=== PATIENT | male | born 1935 | race African-American/Black ===

== ENCOUNTER 2018-01-12 06:05 | Emergency (ER) | payer MEDICARE ==
[2018-01-12] MEDS ORDERED: ASPIRIN PO ONE (06:28)
--- NOTE | 2018-01-12 07:09 | Emergency Department Report ---
ED General Adult HPI - General Chief complaint: Dizziness Stated complaint: DIZZINESS Time Seen by Provider: 01/12/18 06:45 Source: EMS Mode of arrival: Stretcher Limitations: Language Barrier (Grenadian language line systems applications programming lead used however patient has confusion at baseline poor historian) - History of Present Illness Initial comments: 82-year-old male with history of CVA, dementia and atrial fibrillation presents with dizziness and pain all over. Patient is non-Iranian speaking. He is Grenadian. I attempted to use language line systems applications programming lead. Due to patient's dementia, unable to obtain history. He perseverates over whether his daughter has arrived and diagnosis of hypertension. He was unable to answer questions regarding pain and weakness/paresthesias. Nursing staff and I notice left facial droop. Fortunately it was well documented in EMR that patient had CVA with left-sided residual deficits. Majority of hx obtained from EMR - Related Data Home Medications Medication Instructions Recorded Confirmed Last Taken Brimonidine/Timolol 0.2-0.5% 1 drop OU BID 03/21/15 03/21/15 03/21/15 [Combigan 0.2-0.5%] Gabapentin [Neurontin] 300 mg PO BID 03/21/15 03/21/15 03/21/15 Lumigan 0.01% 1 drop HS 03/21/15 03/21/15 03/21/15 amLODIPine [Norvasc] 10 mg PO DAILY 03/21/15 03/21/15 Unknown Previous Rx's Medication Instructions Recorded Last Taken Type Butalb/Acetamin/Caff 50-325-40 2 tab PO Q6H PRN #20 tablet 03/23/15 Unknown Rx [Fioricet] Lisinopril [Zestril TAB] 5 mg PO QDAY #30 tablet 03/23/15 Unknown Rx Pantoprazole Sodium [Protonix] 40 mg PO DAILY #30 tablet. 03/23/15 Unknown Rx Allergies Allergy/AdvReac Type Severity Reaction Status Date / Time No Known Allergies Allergy Unverified 02/16/14 08:33 ED Review of Systems ROS: Stated complaint: DIZZINESS Other details as noted in HPI Comment: Unobtainable due to pts medical conditions (dementia) ED Past Medical Hx - Past Medical History Hx Hypertension: Yes Hx CVA: Yes Hx Diabetes: Yes Additional medical history: (language barrier, awaiting family for further hx) - Surgical History Additional Surgical History: delmer - Social History Smoking Status: Never Smoker Substance Use Type: None - Medications Home Medications: Home Medications Medication Instructions Recorded Confirmed Last Taken Type Brimonidine/Timolol 0.2-0.5% 1 drop OU BID 03/21/15 03/21/15 03/21/15 History [Combigan 0.2-0.5%] Gabapentin [Neurontin] 300 mg PO BID 03/21/15 03/21/15 03/21/15 History Lumigan 0.01% 1 drop HS 03/21/15 03/21/15 03/21/15 History amLODIPine [Norvasc] 10 mg PO DAILY 03/21/15 03/21/15 Unknown History Butalb/Acetamin/Caff 50-325-40 2 tab PO Q6H PRN #20 tablet 03/23/15 Unknown Rx [Fioricet] Lisinopril [Zestril TAB] 5 mg PO QDAY #30 tablet 03/23/15 Unknown Rx Pantoprazole Sodium [Protonix] 40 mg PO DAILY #30 tablet. 03/23/15 Unknown Rx ED Physical Exam - General Limitations: Language Barrier (Grenadian language line systems applications programming lead used, however patient is poor historian), Altered Mental Status (dementia) General appearance: alert, in no apparent distress - Head Head exam: Present: atraumatic, normocephalic - Eye Eye exam: Present: other (cataracts present) - ENT ENT exam: Present: normal exam, mucous membranes moist - Neck Neck exam: Present: normal inspection - Respiratory Respiratory exam: Present: normal lung sounds bilaterally. Absent: respiratory distress, wheezes, rales, rhonchi - Cardiovascular Cardiovascular Exam: Present: regular rate, normal rhythm. Absent: systolic murmur, diastolic murmur, rubs, gallop - GI/Abdominal GI/Abdominal exam: Present: soft, normal bowel sounds. Absent: distended, tenderness, guarding, rebound - Rectal Rectal exam: Present: deferred - Extremities Exam Extremities exam: Present: normal inspection - Back Exam Back exam: Present: normal inspection - Neurological Exam Neurological exam: Present: alert, motor sensory deficit (left facial droop noted, moves all extremities 4), other (oriented to name unclear of situation unclear of date unclear of place) - Psychiatric Psychiatric exam: Present: normal mood, flat affect - Skin Skin exam: Present: warm, dry, intact, normal color. Absent: rash ED Course Vital Signs 01/12/18 01/12/18 01/12/18 06:13 06:15 06:23 Temperature 97.3 F L Pulse Rate 63 63 Respiratory 26 H 26 H Rate Blood Pressure 175/69 175/69 175/69 O2 Sat by Pulse 98 98 Oximetry 01/12/18 01/12/18 01/12/18 06:30 06:45 07:01 Temperature Pulse Rate 57 L 57 L 59 L Respiratory 28 H 22 14 Rate Blood Pressure 151/73 175/69 129/75 O2 Sat by Pulse 99 99 97 Oximetry 01/12/18 01/12/18 01/12/18 07:15 07:39 07:45 Temperature Pulse Rate 57 L 57 L 57 L Respiratory 16 25 H 29 H Rate Blood Pressure 129/75 129/75 129/75 O2 Sat by Pulse 100 100 100 Oximetry 01/12/18 01/12/18 01/12/18 08:01 08:15 08:31 Temperature Pulse Rate 55 L 56 L 57 L Respiratory 16 17 14 Rate Blood Pressure 129/75 129/75 129/75 O2 Sat by Pulse 100 100 100 Oximetry 01/12/18 01/12/18 01/12/18 08:45 10:07 10:15 Temperature Pulse Rate 55 L 52 L Respiratory 15 18 Rate Blood Pressure 129/75 129/75 159/72 O2 Sat by Pulse 100 98 98 Oximetry - Reevaluation(s) Reevaluation #1: 01/12/18 08:24 I spoke with radiologist. Was concern for possible hemorrhage versus calcifications. She also is concerned for acute or subacute infarct. I have ordered MRI of the brain. Attempting to contact family member. Reevaluation #2: 01/12/18 08:40 I spoke with daughter Mary Grace Mcdermott phone number [phone]; she states that the patient had dizziness this morning. No other symptoms. He has a history of 2 strokes. No previous history of surgeries. He does not have any contraindications to obtain a MRI. I answered MRI questionnaire questions with daughter via phone. ED Medical Decision Making - Lab Data Result diagrams: 01/12/18 07:18 01/12/18 07:52 Laboratory Results - last 24 hr 01/12/18 01/12/18 01/12/18 07:18 07:18 07:18 WBC 7.4 RBC 5.40 H Hgb 16.4 H Hct 48.2 H MCV 89 MCH 30 MCHC 34 RDW 12.8 L Plt Count 187 Lymph % (Auto) 34.2 [place] % (Auto) 6.7 Eos % (Auto) 10.7 H Baso % (Auto) 1.3 Lymph # 2.5 [place] # 0.5 Eos # 0.8 H Baso # 0.1 Seg Neutrophils % 47.1 Seg Neutrophils # 3.5 PT 12.7 INR 0.91 APTT 27.0 Sodium 139 Potassium 3.7 Chloride 103.1 Carbon Dioxide 22 Anion Gap 18 BUN 16 Creatinine 0.8 Estimated GFR > 60 BUN/Creatinine Ratio 20 Glucose 156 H Lactic Acid Calcium 8.9 Total Bilirubin AST ALT Alkaline Phosphatase Total Creatine Kinase CK-MB (CK-2) CK-MB (CK-2) Rel Index Troponin T < 0.010 Total Protein Albumin Albumin/Globulin Ratio Urine Color Urine Turbidity Urine pH Ur Specific Vaughan Urine Protein Urine Glucose (UA) Urine Ketones Urine Blood Urine Nitrite Urine Bilirubin Urine Urobilinogen Ur Leukocyte Esterase Urine WBC (Auto) Urine RBC (Auto) 01/12/18 01/12/18 01/12/18 07:18 07:18 07:52 WBC RBC Hgb Hct MCV MCH MCHC RDW Plt Count Lymph % (Auto) [place] % (Auto) Eos % (Auto) Baso % (Auto) Lymph # [place] # Eos # Baso # Seg Neutrophils % Seg Neutrophils # PT INR APTT Sodium 141 Potassium 3.7 Chloride 102.6 Carbon Dioxide 22 Anion Gap 20 BUN 16 Creatinine 0.9 Estimated GFR > 60 BUN/Creatinine Ratio 18 Glucose 162 H Lactic Acid 2.10 H* Calcium 9.0 Total Bilirubin 1.20 AST 43 H ALT 12 Alkaline Phosphatase 66 Total Creatine Kinase 85 CK-MB (CK-2) 1.7 CK-MB (CK-2) Rel Index 2.0 Troponin T Total Protein 7.7 Albumin 4.4 Albumin/Globulin Ratio 1.3 Urine Color Urine Turbidity Urine pH Ur Specific Vaughan Urine Protein Urine Glucose (UA) Urine Ketones Urine Blood Urine Nitrite Urine Bilirubin Urine Urobilinogen Ur Leukocyte Esterase Urine WBC (Auto) Urine RBC (Auto) 01/12/18 01/12/18 08:44 11:15 WBC RBC Hgb Hct MCV MCH MCHC RDW Plt Count Lymph % (Auto) [place] % (Auto) Eos % (Auto) Baso % (Auto) Lymph # [place] # Eos # Baso # Seg Neutrophils % Seg Neutrophils # PT INR APTT Sodium Potassium Chloride Carbon Dioxide Anion Gap BUN Creatinine Estimated GFR BUN/Creatinine Ratio Glucose Lactic Acid 1.30 Calcium Total Bilirubin AST ALT Alkaline Phosphatase Total Creatine Kinase CK-MB (CK-2) CK-MB (CK-2) Rel Index Troponin T Total Protein Albumin Albumin/Globulin Ratio Urine Color Yellow Urine Turbidity Clear Urine pH 8.0 H Ur Specific Vaughan 1.011 Urine Protein <15 mg/dl Urine Glucose (UA) 150 Urine Ketones Tr Urine Blood Neg Urine Nitrite Neg Urine Bilirubin Neg Urine Urobilinogen < 2.0 Ur Leukocyte Esterase Mod Urine WBC (Auto) < 1.0 Urine RBC (Auto) < 1.0 - EKG Data 01/12/18 07:11 EKG obtained at 06 40 Sinus bradycardia 55 normal axis normal QT interval no ST elevation no signs of ischemia - Medical Decision Making Ing hx hx of CVA x 2 according to daughter. He presents with dizziness and generalized pain. No indication of acute CVA today according to MRI brain. No indication of sepsis or vertigo. Hemoconcentration noted with dehydration as the likely diagnosis. No evidence of infection. I informed daughter of the findings. dc'd home. Awaiting daughter's arrival for discharge. Critical Care Time: Yes Critical care time in (mins) excluding proc time.: 40 Critical care attestation.: If time is entered above; I have spent that time in minutes in the direct care of this critically ill patient, excluding procedure time. Critical Care Time: I came to the bedside immediately upon arrival. concern for acute CVA. I immediately obtain language line systems applications programming lead. We determine that the patient was confused. I read several documents in the electronic medical record. I discovered the patient has history of CVA and cognitive deficit. Has history of left-sided residual deficit. Awaiting contact with daughter for further history. ED Disposition Clinical Impression: Dehydration Disposition: DC-01 TO HOME OR SELFCARE Is pt being admited?: No Does the pt Need Aspirin: No Condition: Stable Instructions: Dizziness (ED), Lightheadedness (ED) Time of Disposition: 12:41
[2018-01-12] MEDS ORDERED: NACL 0.9% 500 ML 500 ML IV ONE ×2 (07:14→10:00)
--- NOTE | 2018-01-12 07:43 | XRay Report ---
FINAL REPORT EXAM: XR CHEST 1V AP HISTORY: Status post stroke. TECHNIQUE: A single frontal portable radiograph of the chest was obtained. No prior studies are available for comparison. FINDINGS: The heart is mildly enlarged, and the aorta is tortuous. There is mild eventration of the right hemidiaphragm. The lungs are clear bilaterally, without focal infiltrate or effusion. There is no pneumothorax. Mild spondylotic changes are seen in the spine. IMPRESSION: Mild cardiomegaly. No focal infiltrate or effusion.
[2018-01-12 07:54] LABS: Basophils # (Auto) 0.1 K/mm3 (0.0-0.1); Basophils % (Auto) 1.3 % (0.0-1.8); Eosinophils # (Auto) 0.8 K/mm3 (0.0-0.4); Eosinophils % (Auto) 10.7 % (0.0-4.3); Hematocrit 48.2 % (35.5-45.6); Hemoglobin 16.4 gm/dl (11.8-15.2); Lymphocytes # (Auto) 2.5 K/mm3 (1.2-5.4); Lymphocytes % (Auto) 34.2 % (13.4-35.0); Mean Corpuscular HGB Conc 34 % (32-34); Mean Corpuscular Hemoglobin 30 pg (28-32); Mean Corpuscular Volume 89 fl (84-94); Monocytes # (Auto) 0.5 K/mm3 (0.0-0.8); Monocytes % (Auto) 6.7 % (0.0-7.3); Platelet Count 187 K/mm3 (140-440); Red Cell Distribution Width 12.8 % (13.2-15.2)
[2018-01-12 08:05] LABS: Creatine Kinase MB 1.7 ng/mL (0.0-4.0)
[2018-01-12 08:06] LABS: INR 0.91 (0.87-1.13)
[2018-01-12 08:07] LABS: BUN/Creatinine Ratio 20; Blood Urea Nitrogen 16 mg/dL (9-20); Calcium 8.9 mg/dL (8.4-10.2); Hemolysis Index 14
--- NOTE | 2018-01-12 08:26 | Cat Scan Report ---
FINAL REPORT PROCEDURE: CT HEAD/BRAIN WO CON TECHNIQUE: Computerized tomography of the head was performed without contrast material. HISTORY: Stroke symptoms COMPARISON: No prior studies are available for comparison. FINDINGS: Skull and scalp: Normal. Paranasal sinuses: Normal. Ventricles and subarachnoid spaces: The ventricles are globally prominent. There is asymmetry to the dilatation in the posterior horns of the lateral ventricles with the right being significantly more dilated than the left. Minimal encephalomalacia around the right posterior lateral ventricle is noted.. Cerebrum: There are few foci of hyper attenuation identified in the posterior right temporal lobe, small focus of cerebral hemorrhage measuring 4 millimeters is suspected in this region. A small linear area of hyper attenuation identified in the left lateral parietal lobe may represent a small 4 millimeter focus of subarachnoid hemorrhage in this region. There is moderate atrophy and moderate periventricular deep white matter change. Old lacunar infarctions of both basal ganglia are noted.. Cerebellum and brainstem: There is a 5 millimeter area of hypoattenuation in the right robby, old infarction in this region is suspected. No acute hemorrhage or hematoma. Cerebellum shows mild atrophy. No acute hemorrhage or hematoma.. Vasculature: Normal. Comments: None. IMPRESSION: There is a 4 millimeter focus of hyper attenuation in the posterior right temporal lobe, small focus of cerebral hemorrhage in this region is possible. This is adjacent to an area of encephalomalacia and asymmetric dilatation of the posterior horn of the right lateral ventricle. Acute findings adjacent to a old infarction in this region is suspected. 4 millimeter focus of hyper attenuation in the lateral left parietal lobe near the sulci, small focus of subarachnoid hemorrhage in this region is possible. Moderate atrophy and periventricular deep white matter changes. Old lacunar infarctions of both basal ganglia and the right orbby as discussed. Atrophy of the cerebellum is moderate. Follow-up imaging including MRI should be entertained. The above findings are discussed with the patient's ER physician Dr. Viveros at the time of dictation 0719 central standard time on 01/12/2018
--- NOTE | 2018-01-12 09:53 | Magnetic Resonance Report ---
MRI BRAIN WITHOUT CONTRAST: 01/12/18 09:05 CLINICAL: Stroke. COMPARISON: CT Head on the same day and MRI Brain 05/04/13 TECHNIQUE: Axial diffusion, T1, T2, FLAIR, gradient echo T2*, and sagittal T1 sequences on a 1.5 Lesia magnet. FINDINGS: Global cortical atrophy is largely commensurate with age. However, focal gyral atrophy of the posterior right parietal and right occipital lobes with ex-vacuo dilatation of the right lateral ventricle. This correlates with a large intraparenchymal brain hemorrhage on the comparison MRI. No restricted diffusion. No mass or mass effect. No hemorrhage, edema or extra-axial collection. Evidence of hemosiderin deposition in the right posterior parietal lobe and the right occipital lobe as well as multiple bilateral micro-bleeds involving bilateral basal ganglia and the right cerebellum on the gradient echo sequence. Extensive bilateral deep white matter and periventricular white matter hyperintensities FLAIR and T2. Normal pituitary and optic chiasm. A relatively large chronic right pontine lacunar infarct is new compared to the previous MRI. Intact vascular flow voids. Mild bilateral maxillary sinusitis. The orbits, and soft tissues are normal. Normal calvarium and skull base. IMPRESSION: 1. No evidence of acute/subacute infarct or hemorrhage. 2. Chronic right posterior parietal and right occipital lobe atrophy in an area of a previous large intraparenchymal hemorrhage. 3. Extensive chronic white matter microangiopathy. 4. Bilateral basal ganglia and right cerebellar chronic micro-bleeds. 5. Large chronic right pontine lacunar infarct.
[2018-01-12 11:10] LABS: Alanine Aminotransferase 12 units/L (7-56); Albumin 4.4 g/dL (3.9-5); BUN/Creatinine Ratio 18; Blood Urea Nitrogen 16 mg/dL (9-20); Hemolysis Index 23
[2018-01-12 12:35] LABS: Bilirubin,Urine NEG (Negative); Blood,Urine NEG (Negative); Color,Urine Yellow (Yellow); Protein,Urine <15 mg/dL mg/dL (Negative); RBC,Urine < 1.0 /HPF (0.0-6.0); Urobilinogen,Urine < 2.0 mg/dL (<2.0)
[2018-01-12 12:36] LABS: WBC,Urine < 1.0 /HPF (0.0-6.0)
[2018-01-12 13:22] VITALS: BP 162/73
== END 2018-01-12 13:30 | disposition home or self-care (01) ==
LOC: ED 06:05
DX: E86.0 Dehydration (principal); I63.9 Cerebral infarction, unspecified; I48.91 Unspecified atrial fibrillation; F03.90 Unspecified dementia, unspecified severity, without behavioral disturbance, psychotic disturbance, mood disturbance, and anxiety; I10 Essential (primary) hypertension; E11.9 Type 2 diabetes mellitus without complications
CPT/HCPCS: 36415; 70450; 70551; 71045; 80048; 80053; 81001; 82140; 82550; 82553; 84484; 85025; 85610; 85730; 87040; 93005; 93010; 99285; J7040; 99291

== ENCOUNTER 2019-03-20 18:06 | Inpatient (IN) | payer MEDICARE, MEDICAID ==
[2019-03-20 19:08] LABS: Basophils # (Auto) 0.1 K/mm3 (0.0-0.1); Basophils % (Auto) 1.1 % (0.0-1.8); Eosinophils # (Auto) 0.7 K/mm3 (0.0-0.4); Eosinophils % (Auto) 9.8 % (0.0-4.3); Hematocrit 44.3 % (35.5-45.6); Hemoglobin 15.3 gm/dl (11.8-15.2); Lymphocytes # (Auto) 1.8 K/mm3 (1.2-5.4); Mean Corpuscular HGB Conc 35 % (32-34); Mean Corpuscular Volume 90 fl (84-94); Monocytes # (Auto) 0.5 K/mm3 (0.0-0.8); Monocytes % (Auto) 7.8 % (0.0-7.3); Platelet Count 167 K/mm3 (140-440); Red Blood Count 4.93 M/mm3 (3.65-5.03); Red Cell Distribution Width 13.3 % (13.2-15.2)
[2019-03-20 19:28] LABS: Alanine Aminotransferase 9 units/L (7-56); Albumin 3.7 g/dL (3.9-5); BUN/Creatinine Ratio 15; Blood Urea Nitrogen 16 mg/dL (9-20); Calcium 9.1 mg/dL (8.4-10.2); Hemolysis Index 19
[2019-03-20] MEDS ORDERED: ZOFRAN IV ONE (19:30)
[2019-03-20] MEDS ORDERED: SUBLIMAZE IV ONE (19:30)
--- NOTE | 2019-03-20 19:35 | Emergency Department Report ---
HPI - General Chief Complaint: Dyspnea/Respdistress Time Seen by Provider: 03/20/19 19:07 - HPI HPI: Room 2 The patient is an 83-year-old male presenting with a chief complaint of chest pain and headache. Patient states his symptoms began last night with intermittent chest pain described as electric shock and pleuritic in nature. Patient states he also developed a headache and dizziness with a cough productive of yellow sputum last night. Patient denies any recent travel outside of the [place]. Patient denies any recent flights or long car trips. Patient states there is nausea without vomiting associated with this chest pain. Patient complains of pain from his chest radiating down to his knees. Patient is unable to quantify his pain on the pain scale. History is obtained via Danish couturiere using the language line. Location: [See above] Duration: [See above] Quality: Shock Severity: Moderate Modifying factors: [see above] Context: [see above] Mode of transportation: [not driving] ED Past Medical Hx - Past Medical History Hx Hypertension: Yes Hx CVA: Yes Hx Diabetes: Yes Additional medical history: R eye blindness, glaucoma - Surgical History Additional Surgical History: Denies previous surgeries - Family History Family history: no significant - Social History Smoking Status: Never Smoker Substance Use Type: None - Medications Home Medications: Home Medications Medication Instructions Recorded Confirmed Last Taken Type Brimonidine/Timolol 0.2-0.5% 1 drop OU BID 03/21/15 03/21/15 03/21/15 History [Combigan 0.2-0.5%] Gabapentin [Neurontin] 300 mg PO BID 03/21/15 03/21/15 03/21/15 History Lumigan 0.01% 1 drop HS 03/21/15 03/21/15 03/21/15 History amLODIPine [Norvasc] 10 mg PO DAILY 03/21/15 03/21/15 Unknown History Butalb/Acetamin/Caff 50-325-40 2 tab PO Q6H PRN #20 tablet 03/23/15 Unknown Rx [Fioricet 50-325-40] Lisinopril [Zestril TAB] 5 mg PO QDAY #30 tablet 03/23/15 Unknown Rx Pantoprazole Sodium [Protonix] 40 mg PO DAILY #30 tablet. 03/23/15 Unknown Rx ED Review of Systems ROS: Stated complaint: RADHA Other details as noted in HPI Constitutional: fever (subjective) Eyes: denies: eye pain ENT: denies: throat pain Respiratory: cough, shortness of breath Cardiovascular: chest pain Endocrine: no symptoms reported Gastrointestinal: nausea. denies: vomiting Musculoskeletal: back pain, arthralgia Neurological: headache Physical Exam - Physical Exam Physical Exam: GENERAL: The patient is well-developed well-nourished male lying on stretcher not appearing to be in acute distress. [] HEENT: Normocephalic. Atraumatic. Extraocular motions are intact. Patient has moist mucous membranes. NECK: Supple. Trachea midline CHEST/LUNGS: Clear to auscultation. There is no respiratory distress noted. HEART/CARDIOVASCULAR: Regular. There is no tachycardia. There is no gallop rub or murmur. ABDOMEN: Abdomen is soft, nontender. Patient has normal bowel sounds. There is no abdominal distention. SKIN: There is no rash. There is no edema. There is no diaphoresis. NEURO: The patient is awake, alert, and oriented. The patient is cooperative. The patient has normal speech. Patient moves all extremities MUSCULOSKELETAL: There is no evidence of acute injury. ED Medical Decision Making - Lab Data Result diagrams: 03/20/19 18:51 03/20/19 18:51 - EKG Data -: EKG Interpreted by Me EKG shows normal: sinus rhythm Rate: normal - EKG Data When compared to previous EKG there are: previous EKG unavailable Interpretation: nonspecific ST-T wave perry (T-wave inversion in lead 3) - Radiology Data Radiology results: report reviewed (chest x-ray, CT chest, CT head), image reviewed (chest x-ray, CT chest, CT head) interpreted by me: Chest x-ray-no focal infiltrates, no pneumothorax [facility] [address] [place] [address] Cat Scan Report Signed Patient: DAVIDA AGUIRRE MR#: [id number] : 1935 Acct:[id number] Age/Sex: 83 / M ADM Date: 03/20/19 Loc: ED Attending Dr: Ordering Physician: DENNYS DORAN MD Date of Service: 03/20/19 Procedure(s): CT angio chest Accession Number(s): [id number] cc: DENNYS DORAN MD PROCEDURE: CT ANGIO CHEST TECHNIQUE: Computerized tomographic angiography of the chest was performed after the IV injection of iodinated nonionic contrast including image processing. The image data was postprocessed using 2-dimensional multiplanar reformatted (MPR) and 3-dimensional (MIP and/or volume rendered) techniques. Automated exposure control, adjustment of mA and/or kV according to patient size, or iterative reconstruction dose optimization techniques were utilized. CT DOSE LENGTH PRODUCT: 382.5 mGycm HISTORY: chest pain, pleurisy COMPARISONS: None . FINDINGS: Heart and pericardium: Normal. Thoracic aorta: Normal. Pulmonary vasculature: Normal. Lymph nodes: No enlarged thoracic lymph nodes. There are a few small right hilar calcifications and calcified anterior mediastinal lymph nodes. Lungs: Normal. Pleural space: No effusion, thickening, or pneumothorax. Musculoskeletal structures: No significant abnormality. Upper abdominal structures: No significant abnormality. IMPRESSION: Negative no CT evidence for acute pulmonary embolus This document is electronically signed by Chauncey Pulido MD., Mar 20 2019 09:48:38 PM ET Transcribed By: KARLO Dictated By: LUCIEN PULIDO MD Electronically Authenticated By: LUCIEN PULIDO MD Signed Date/Time: 03/20/192049 DD/ 20 TD/TT: 03/20/192020 [place] [address] Cat Scan Report Signed Patient: DAVIDA AGUIRRE MR#: [id number] : 1935 Acct:[id number] Age/Sex: 83 / M ADM Date: 03/20/19 Loc: ED Attending Dr: Ordering Physician: DENNYS DORAN MD Date of Service: 03/20/19 Procedure(s): CT head/brain wo con Accession Number(s): [id number] cc: DENNYS DORAN MD PROCEDURE: CT HEAD/BRAIN WO CON TECHNIQUE: Computerized tomography of the head was performed without contrast material. CT DOSE LENGTH PRODUCT: 3144.6 mGycm HISTORY: heada luciana, hypertension COMPARISONS: None . FINDINGS: Skull and scalp: Normal . Paranasal sinuses: Normal . Ventricles and subarachnoid spaces: There is marked enlargement of the lateral ventricles with asymmetric enlargement of the trigone and posterior horn of the right lateral ventricle does not appear changed. Cerebrum: Patchy confluent areas of the heart intensity within the supratentorial white matter likely reflect chronic ischemic change. Cerebellum and brainstem: No evidence of hemorrhage, acute infarction or mass . IMPRESSION: Ventriculomegaly which appears stable from the prior study. Chronic small vessel white matter ischemic change This document is electronically signed by Chauncey Pulido MD., Mar 20 2019 09:40:44 PM ET Transcribed By: NasirDK Dictated By: LUCIEN PULIDO MD Electronically Authenticated By: LUCIEN PULIDO MD Signed Date/Time: 03/20/192041 DD/ 20 TD/TT: 03/20/192020 [facility] [address] [place] [address] XRay Report Signed Patient: DAVIDA AGUIRRE MR#: [id number] : 1935 Acct:[id number] Age/Sex: 83 / M ADM Date: 03/20/19 Loc: ED Attending Dr: Ordering Physician: ANDRES HUSSEIN Date of Service: 03/20/19 Procedure(s): XR chest 1V ap Accession Number(s): [id number] cc: ANDRES HUSSEIN Fluoro Time In Minutes: PROCEDURE: XR CHEST 1V AP TECHNIQUE: Chest radiograph single view. HISTORY: Dyspnea COMPARISONS: None . FINDINGS: Heart: Normal. Mediastinum/Vessels: Normal. Lungs/Pleural space: Normal. Bony thorax: No acute osseous abnormality. Life support devices: None. IMPRESSION: No acute cardiopulmonary abnormality. This document is electronically signed by Andrew Addison MD., Mar 20 2019 10:05:51 PM ET Transcribed By: CO Dictated By: ANDREW ADDISON MD Electronically Authenticated By: ANDREW ADDISON MD Signed Date/Time: 03/20/192106 DD/ 44 TD/TT: 03/20/191899 - Differential Diagnosis ACS, PE, aortic dissection, hypertensive urgency Critical care attestation.: If time is entered above; I have spent that time in minutes in the direct care of this critically ill patient, excluding procedure time. ED Disposition Clinical Impression: Chest pain Disposition: DC- OP ADMIT IP TO THIS HOSP Is pt being admited?: Yes Does the pt Need Aspirin: Yes Condition: Fair Instructions: Chest Pain (ED) Time of Disposition: 21:19 (hospitalist paged (Dr Pemberton))
--- NOTE | 2019-03-20 20:42 | Cat Scan Report ---
PROCEDURE: CT HEAD/BRAIN WO CON TECHNIQUE: Computerized tomography of the head was performed without contrast material. CT DOSE LENGTH PRODUCT: 3144.6 mGycm HISTORY: headache, hypertension COMPARISONS: None . FINDINGS: Skull and scalp: Normal . Paranasal sinuses: Normal . Ventricles and subarachnoid spaces: There is marked enlargement of the lateral ventricles with asymme tric enlargement of the trigone and posterior horn of the right lateral ventricle does not appear perry nged. Cerebrum: Patchy confluent areas of the heart intensity within the supratentorial white matter likely reflect chronic ischemic change. Cerebellum and brainstem: No evidence of hemorrhage, acute infarction or mass . IMPRESSION: Ventriculomegaly which appears stable from the prior study. Chronic small vessel white matter ischemic change This document is electronically signed by Chauncey Stinson MD., Mar 20 2019 09:40:44 PM ET
--- NOTE | 2019-03-20 20:50 | Cat Scan Report ---
PROCEDURE: CT ANGIO CHEST TECHNIQUE: Computerized tomographic angiography of the chest was performed after the IV injection of iodinated nonionic contrast including image processing. The image data was postprocessed using 2-di mensional multiplanar reformatted (MPR) and 3-dimensional (MIP and/or volume rendered) techniques. Au tomated exposure control, adjustment of mA and/or kV according to patient size, or iterative reconstr uction dose optimization techniques were utilized. CT DOSE LENGTH PRODUCT: 382.5 mGycm HISTORY: chest pain, pleurisy COMPARISONS: None . FINDINGS: Heart and pericardium: Normal. Thoracic aorta: Normal. Pulmonary vasculature: Normal. Lymph nodes: No enlarged thoracic lymph nodes. There are a few small right hilar calcifications and calcified anterior mediastinal lymph nodes. Lungs: Normal. Pleural space: No effusion, thickening, or pneumothorax. Musculoskeletal structures: No significant abnormality. Upper abdominal structures: No significant abnormality. IMPRESSION: Negative no CT evidence for acute pulmonary embolus This document is electronically signed by Chauncey Stinson MD., Mar 20 2019 09:48:38 PM ET
--- NOTE | 2019-03-20 21:07 | XRay Report ---
PROCEDURE: XR CHEST 1V AP TECHNIQUE: Chest radiograph single view. HISTORY: Dyspnea COMPARISONS: None . FINDINGS: Heart: Normal. Mediastinum/Vessels: Normal. Lungs/Pleural space: Normal. Bony thorax: No acute osseous abnormality. Life support devices: None. IMPRESSION: No acute cardiopulmonary abnormality. This document is electronically signed by Andrew Honeycutt MD., Mar 20 2019 10:05:51 PM ET
[2019-03-20] MEDS ORDERED: ASPIRIN PO ONE (21:11)
[2019-03-20] MEDS ORDERED: NORCO 5/325 PO PRN (21:42)
[2019-03-20] MEDS ORDERED: SODIUM CHLORIDE FLUSH SYRINGE 10 ML IV PRN (21:42)
[2019-03-20] MEDS ORDERED: TYLENOL PO PRN (21:42)
[2019-03-20] MEDS ORDERED: MORPHINE IV PRN (21:42)
[2019-03-20] MEDS ORDERED: ZOFRAN IV PRN (21:42)
[2019-03-20] MEDS ORDERED: APRESOLINE IV PRN (21:50)
[2019-03-20] MEDS ORDERED: D50W (25GM) Syringe IV PRN (21:52)
[2019-03-20] MEDS ORDERED: HEPARIN SUB-Q SCH (22:00)
[2019-03-20] MEDS ORDERED: NACL 0.9% 1000 ML 1,000 ML IV SCH (22:00)
[2019-03-20] MEDS ORDERED: LANTUS SUB-Q SCH (22:00)
--- NOTE | 2019-03-20 22:19 | History and Physical Report ---
History of Present Illness Date of examination: 03/20/19 Chief complaint: Chest pain History of present illness: The patient is a 83-year-old [place] male who presented to the ED with complai nt of chest pain of a day duration. Of note, history taking was constrained due to language barrier. He described his pain as intermittent, electric shock, pleuritic in nature and radiating downwards. Patient is unable to quantify his pain on the pain scale. He has associated headache, dizziness, nausea without vomiting and cough productive of yellow sputum. He denies any recent flights or long car trips. Past History Past Medical History: diabetes, GERD, heart failure, hypertension, stroke (hemorrhagic), other (chronic sinus bradycardia, right eye blindness and glaucoma) Past Surgical History: No surgical history Social history: no significant social history (he denies tobacco, alcohol or illicit drug use) Family history: no significant family history (reviewed and noncontributory to heart disease or heart attack) Medications and Allergies Allergies Allergy/AdvReac Type Severity Reaction Status Date / Time No Known Allergies Allergy Unverified 02/16/14 08:33 Home Medications Medication Instructions Recorded Confirmed Last Taken Type Brimonidine/Timolol 0.2-0.5% 1 drop OU BID 03/21/15 03/21/15 03/21/15 History [Combigan 0.2-0.5%] Gabapentin [Neurontin] 300 mg PO BID 03/21/15 03/21/15 03/21/15 History Lumigan 0.01% 1 drop HS 03/21/15 03/21/15 03/21/15 History amLODIPine [Norvasc] 10 mg PO DAILY 03/21/15 03/21/15 Unknown History Butalb/Acetamin/Caff 50-325-40 2 tab PO Q6H PRN #20 tablet 03/23/15 Unknown Rx [Fioricet 50-325-40] Lisinopril [Zestril TAB] 5 mg PO QDAY #30 tablet 03/23/15 Unknown Rx Pantoprazole Sodium [Protonix] 40 mg PO DAILY #30 tablet. 03/23/15 Unknown Rx Active Meds: Active Medications Acetaminophen (Tylenol) 650 mg PO Q4H PRN PRN Reason: Pain MILD(1-3)/Fever >100.5/LERMA Acetaminophen/Hydrocodone Bitart ([place] 5/325) 1 each PO Q6H PRN PRN Reason: Pain, Moderate (4-6) Amlodipine Besylate (Norvasc) 10 mg PO QDAY JESSY Dextrose (D50w (25gm) Syringe) 50 ml IV PRN PRN PRN Reason: Hypoglycemia Docusate Sodium (Colace) 100 mg PO BID JESSY Famotidine (Pepcid) 10 mg PO BID JESSY Heparin Sodium (Porcine) (Heparin) 5,000 unit SUB-Q Q12HR JESSY Hydralazine HCl (Apresoline) 10 mg IV Q4H PRN PRN Reason: Blood Pressure Hydralazine HCl (Apresoline) 50 mg PO Q8HR JESSY Sodium Chloride (Nacl 0.9% 1000 Ml) 1,000 mls @ 75 mls/hr IV DIRECT JESSY Insulin Glargine (Lantus) 10 units SUB-Q QHS JESSY Insulin Human Lispro (Humalog) 0 unit SUB-Q ACHS JESSY; Protocol Morphine Sulfate (Morphine) 2 mg IV Q4H PRN PRN Reason: Pain , Severe (7-10) Ondansetron HCl (Zofran) 4 mg IV Q8H PRN PRN Reason: Nausea And Vomiting Sodium Chloride (Sodium Chloride Flush Syringe 10 Ml) 10 ml IV BID JESSY Sodium Chloride (Sodium Chloride Flush Syringe 10 Ml) 10 ml IV PRN PRN PRN Reason: LINE FLUSH Review of Systems All systems: negative (except as documented in the HPI, 14 point system reviewed were negative) Exam - Constitutional Vitals: Temp Pulse Resp BP Pulse Ox 50 L 17 163/70 97 03/20/19 22:07 03/20/19 22:07 03/20/19 22:07 03/20/19 22:07 General appearance: Present: no acute distress - EENT Eyes: Present: PERRL, EOM intact ENT: hearing intact, clear oral mucosa - Neck Neck: Present: supple, normal ROM - Respiratory Respiratory effort: normal Respiratory: bilateral: CTA - Cardiovascular Rhythm: regular (with bradycardia) Heart Sounds: Present: S1 & S2 - Extremities Extremity abnormal: edema (in bilateral lower extremities) - Abdominal General gastrointestinal: Present: soft, non-tender, non-distended, normal bowel sounds Male genitourinary: Present: deferred - Integumentary Integumentary: Present: clear, warm, dry - Musculoskeletal Musculoskeletal: generalized weakness - Psychiatric Psychiatric: cooperative - Neurologic Neurologic: moves all extremities Results - Labs CBC & Chem 7: 03/20/19 18:51 03/20/19 18:51 Labs: Laboratory Last Values WBC 6.9 K/mm3 (4.5-11.0) 03/20/19 18:51 RBC 4.93 M/mm3 (3.65-5.03) 03/20/19 18:51 Hgb 15.3 gm/dl (11.8-15.2) H 03/20/19 18:51 Hct 44.3 % (35.5-45.6) 03/20/19 18:51 MCV 90 fl (84-94) 03/20/19 18:51 MCH 31 pg (28-32) 03/20/19 18:51 MCHC 35 % (32-34) H 03/20/19 18:51 RDW 13.3 % (13.2-15.2) 03/20/19 18:51 Plt Count 167 K/mm3 (140-440) 03/20/19 18:51 Lymph % (Auto) 26.0 % (13.4-35.0) 03/20/19 18:51 Yates % (Auto) 7.8 % (0.0-7.3) H 03/20/19 18:51 Eos % (Auto) 9.8 % (0.0-4.3) H 03/20/19 18:51 Baso % (Auto) 1.1 % (0.0-1.8) 03/20/19 18:51 Lymph # 1.8 K/mm3 (1.2-5.4) 03/20/19 18:51 Yates # 0.5 K/mm3 (0.0-0.8) 03/20/19 18:51 Eos # 0.7 K/mm3 (0.0-0.4) H 03/20/19 18:51 Baso # 0.1 K/mm3 (0.0-0.1) 03/20/19 18:51 Seg Neutrophils % 55.3 % (40.0-70.0) 03/20/19 18:51 Seg Neutrophils # 3.8 K/mm3 (1.8-7.7) 03/20/19 18:51 Sodium 137 mmol/L (137-145) 03/20/19 18:51 Potassium 3.7 mmol/L (3.6-5.0) 03/20/19 18:51 Chloride 103.1 mmol/L (98-107) 03/20/19 18:51 Carbon Dioxide 21 mmol/L (22-30) L 03/20/19 18:51 17 mmol/L 03/20/19 18:51 BUN 16 mg/dL (9-20) 03/20/19 18:51 1.1 mg/dL (0.8-1.5) 03/20/19 18:51 Estimated GFR > 60 ml/min 03/20/19 18:51 15 % 03/20/19 18:51 Glucose 297 mg/dL (75-100) H 03/20/19 18:51 Calcium 9.1 mg/dL (8.4-10.2) 03/20/19 18:51 0.70 mg/dL (0.1-1.2) 03/20/19 18:51 AST 36 units/L (5-40) 03/20/19 18:51 ALT 9 units/L (7-56) 03/20/19 18:51 65 units/L (35-129) 03/20/19 18:51 < 0.010 ng/mL (0.00-0.029) 03/20/19 21:12 7.5 g/dL (6.3-8.2) 03/20/19 18:51 3.7 g/dL (3.9-5) L 03/20/19 18:51 1.0 % 03/20/19 18:51 Assessment and Plan Assessment and plan: Chest pain, rule out ACS -On chest pain pathway -Further investigative testing with stress test in a.m. DM2 with hyperglycemia -On SSI and Lantus Hypertensive urgency -On antihypertensives, adjust as needed Chronic Sinus bradycardia -On front desk monitor Acute metabolic acidosis -On IV fluid, will monitor bicarbonate level History of hemorrhagic stroke -Stable Chronic diastolic heart failure with EF of 65-70% -No acute exacerbation Glaucoma -Resume home eyedrops when reconciled GERD -On famotidine DVT prophylaxis with SCD due to high risk for bleed Disposition: For discharge when medically stable Time spent: 38 minutes
[2019-03-20] MEDS ORDERED: NORVASC ONE (23:28)
[2019-03-20] MEDS ORDERED: COLACE ONE (23:28)
[2019-03-20] MEDS ORDERED: ASPIRIN ONE (23:28)
[2019-03-20] MEDS ORDERED: PEPCID ONE (23:28)
[2019-03-20] MEDS ORDERED: APRESOLINE ONE (23:29)
[2019-03-20] MEDS: APRESOLINE PO SCH (23:47)
[2019-03-20] MEDS: COLACE PO SCH (23:48)
[2019-03-20] MEDS: HumaLOG SUB-Q SCH (23:52)
[2019-03-20] MEDS: PEPCID PO SCH (23:53)
[2019-03-20] MEDS: SODIUM CHLORIDE FLUSH SYRINGE 10 ML IV SCH (23:53)
[2019-03-20] MEDS: NORVASC PO SCH (23:53)
[2019-03-21] MEDS: APRESOLINE PO SCH ×2 (05:42→13:48)
[2019-03-21 06:33] LABS: BUN/Creatinine Ratio 16; Blood Urea Nitrogen 13 mg/dL (9-20); Calcium 8.9 mg/dL (8.4-10.2); Hemolysis Index 17
[2019-03-21] MEDS: HumaLOG SUB-Q SCH ×2 (07:30→13:46)
[2019-03-21] MEDS ORDERED: LEXISCAN IV ONE ×2 (07:55→08:02)
[2019-03-21] MEDS ORDERED: K-DUR PO ONE ×2 (09:00→15:00)
--- NOTE | 2019-03-21 10:38 | Discharge Summary ---
Providers - Providers Date of Admission: 03/20/19 21:42 Date of discharge: 03/21/19 Attending physician: NANETTE ARCE Primary care physician: ZAKI SCHAFER Hospitalization Reason for admission: cp Condition: Fair Hospital course: The patient is a 83-year-old [place] male who presented to the ED with complaint of chest pain of a day duration. Daughter was at the bedside was able to translate the interview and voice understanding to the plan of care. Of note, patient did have reproducible pain with palpation to the left chest wall. Chest x-ray was negative with no infiltrates or pneumothorax. Cardiac isoenzymes were negative. EKG was nonspecific with ST-T wave changes. CT of the chest was negative for PE. Stress test was completed and found to be negative the patient will be discharged home. Dedicated discharge time 32 minutes. Disposition: TO HOME OR SELFCARE Time spent for discharge: 32 - Discharge Diagnoses (1) Chest pain Status: Acute (2) Afib Status: Chronic (3) HTN (hypertension) Status: Chronic Core Measure Documentation - Palliative Care Palliative Care/ Comfort Measures: Not Applicable - Core Measures Any of the following diagnoses?: none Exam - Constitutional Vitals: Temp Pulse Resp BP Pulse Ox 97.4 F L 55 L 20 148/65 95 03/21/19 05:20 03/21/19 05:20 03/21/19 05:20 03/21/19 05:20 03/21/19 05:20 General appearance: Present: no acute distress, well-nourished - EENT Eyes: Present: PERRL ENT: hearing intact, clear oral mucosa - Neck Neck: Present: supple, normal ROM - Respiratory Respiratory effort: normal Respiratory: bilateral: CTA - Cardiovascular Heart Sounds: Present: S1 & S2. Absent: rub, click - Extremities Extremities: pulses symmetrical, No edema Peripheral Pulses: within normal limits - Abdominal General gastrointestinal: Present: soft, non-tender, non-distended, normal bowel sounds Male genitourinary: Present: normal - Integumentary Integumentary: Present: clear, warm, dry - Musculoskeletal Musculoskeletal: gait normal, strength equal bilaterally - Psychiatric Psychiatric: appropriate mood/affect, intact judgment & insight - Neurologic Neurologic: CNII-XII intact, moves all extremities Plan Activity: no restrictions Weight Bearing Status: Full Weight Bearing Diet: regular Follow up with: ZAKI SCHAFER MD [Primary Care Provider] - 7 Days
[2019-03-21] MEDS: PEPCID PO SCH (13:47)
[2019-03-21] MEDS: COLACE PO SCH (13:47)
[2019-03-21] MEDS: NORVASC PO SCH (13:48)
[2019-03-21] MEDS: SODIUM CHLORIDE FLUSH SYRINGE 10 ML IV SCH (13:49)
[2019-03-21 13:50] VITALS: BP 146/63
== END 2019-03-21 17:23 | disposition home or self-care (01) | DRG 313 ==
LOC: ED 18:06 → 4A 21:42
PROVIDERS: ADMIT Internal Medicine; ATTEND Hospitalist
DX: R07.89 Other chest pain (principal); I50.32 Chronic diastolic (congestive) heart failure; E87.2 Acidosis; I16.0 Hypertensive urgency; I11.0 Hypertensive heart disease with heart failure; I48.91 Unspecified atrial fibrillation; H40.9 Unspecified glaucoma; E11.65 Type 2 diabetes mellitus with hyperglycemia; R51 Headache; R00.1 Bradycardia, unspecified; H54.61 Unqualified visual loss, right eye, normal vision left eye; Z86.73 Personal history of transient ischemic attack (TIA), and cerebral infarction without residual deficits; Z79.899 Other long term (current) drug therapy; Z79.84 Long term (current) use of oral hypoglycemic drugs
CPT/HCPCS: 36415; 70450; 71045; 71275; 78452; 80048; 80053; 82962; 84484; 85025; 93005; 93010; 93017; 96374; 96375; G0378; A9502; J0360; J1815; J2405; J2785; J3010; J7030; Q9967

== ENCOUNTER 2021-12-01 19:35 | Emergency (ER) | payer MEDICARE ==
--- NOTE | 2021-12-01 19:47 | Emergency Department Report ---
ED General Adult HPI - General Chief complaint: Weakness Stated complaint: weakness Time Seen by Provider: 12/01/21 19:42 Source: patient, EMS (Verbal report received from emergency medical services. EMS documentation not available at time of chart dictation ), RN notes reviewed Mode of arrival: Stretcher Limitations: Other (Patient is a poor historian. Patient is cognitively diminished.) - History of Present Illness Initial comments: The patient was evaluated in the emergency department for symptoms described in the history of present illness. He/she was evaluated in the context of the global COVID-19 pandemic, which necessitated consideration that the patient might be at risk for infection with the virus that causes COVID-19. Institutional protocols and algorithms that pertain to the evaluation of patients at risk for COVID-19 are in a state of rapid change based on information released by regulatory bodies including the CDC and federal and state organizations. These policies and algorithms were followed during the patient's care in the emergency department. Please note that these policies, procedures and recommendations changed on a rapid basis. History obtained by speaking to the patient's daughter, Ms. Mary Grace Mcdermott; [phone] This patient is an 85-year-old gentleman, with a history of being blind, hypertension, diminished cognition, wheelchair-bound, Gibbs catheter in place, typically Norwegian speaking, not vaccinated gets Covid, with a known chronic aortic ulcer. As per his daughter, the patient has been complaining of lower abdominal fullness, and inability to urinate, associated with nausea. She denies diarrhea, fever, cough, and reports that the patient has not fallen or hit his head. She reports that the patient lives at home with her, and with family members. She reports the patient has follow-up with an outpatient specialist for his indwelling Gibbs catheter. -: Gradual Consistency: now resolved Improves with: other (Placement of a Gibbs catheter) - Related Data Home Medications Medication Instructions Recorded Confirmed Last Taken Brimonidine/Timolol 0.2-0.5% 1 drop OU BID 03/21/15 09/21/21 1 Month Ago [Combigan 0.2-0.5%] ~08/22/21 Gabapentin 300 mg PO BID PRN 03/21/15 09/21/21 2 Weeks Ago ~09/07/21 Bimatoprost [Lumigan] 1 drop OU HS 09/21/21 09/21/21 1 Month Ago ~08/22/21 Simvastatin 20 mg PO QDAY 09/21/21 09/21/21 09/20/21 Triamcinolone Acetonide [Triderm] 1 gm BID 09/21/21 09/21/21 1 Week Ago ~09/14/21 Previous Rx's Medication Instructions Recorded Last Taken Type amLODIPine 10 mg PO QDAY tablet 03/21/19 09/20/21 Rx Cefpodoxime Proxetil 100 mg PO Q12HR #14 tab 12/01/21 Unknown Rx Allergies Allergy/AdvReac Type Severity Reaction Status Date / Time No Known Allergies Allergy Verified 09/21/21 11:15 ED Review of Systems ROS: Stated complaint: weakness Other details as noted in HPI Constitutional: weakness. denies: fever Respiratory: denies: cough Cardiovascular: denies: chest pain Gastrointestinal: nausea. denies: vomiting, diarrhea Genitourinary: as per HPI Neurological: weakness ED Past Medical Hx - Past Medical History Hx Hypertension: Yes Hx CVA: Yes (Residual left-sided weakness) Additional medical history: R eye blindness, glaucoma - Surgical History Additional Surgical History: Denies previous surgeries - Social History Smoking Status: Unknown if ever smoked - Medications Home Medications: Home Medications Medication Instructions Recorded Confirmed Last Taken Type Brimonidine/Timolol 0.2-0.5% 1 drop OU BID 03/21/15 09/21/21 1 Month Ago History [Combigan 0.2-0.5%] ~08/22/21 Gabapentin 300 mg PO BID PRN 03/21/15 09/21/21 2 Weeks Ago History ~09/07/21 amLODIPine 10 mg PO QDAY tablet 03/21/19 09/21/21 09/20/21 Rx Bimatoprost [Lumigan] 1 drop OU HS 09/21/21 09/21/21 1 Month Ago History ~08/22/21 Simvastatin 20 mg PO QDAY 09/21/21 09/21/21 09/20/21 History Triamcinolone Acetonide [Triderm] 1 gm BID 09/21/21 09/21/21 1 Week Ago History ~09/14/21 Cefpodoxime Proxetil 100 mg PO Q12HR #14 tab 12/01/21 Unknown Rx ED Physical Exam - General Limitations: Physical Limitation General appearance: anxious - Head Head exam: Present: atraumatic, normocephalic - Eye Eye exam: Present: EOMI, other (Cloudy appearing cornea) - ENT ENT exam: Present: normal exam, normal orophraynx, mucous membranes dry, normal external ear exam - Neck Neck exam: Present: normal inspection, full ROM. Absent: tenderness, meningismus - Respiratory Respiratory exam: Present: decreased breath sounds. Absent: respiratory distress, wheezes, rales, rhonchi, stridor - Cardiovascular Cardiovascular Exam: Present: bradycardia, irregular rhythm. Absent: systolic murmur, diastolic murmur, rubs, gallop - GI/Abdominal GI/Abdominal exam: Present: soft. Absent: distended, tenderness, guarding, rebound, rigid, pulsatile mass - Rectal Rectal exam: Present: normal inspection, other (Chaperoned by nurse Devi Hurtado) - exam: Present: normal inspection, other (There is a suprapubic distention and fullness appreciated. There is a Gibbs catheter in place.) External exam: Present: normal external exam - Extremities Exam Extremities exam: Present: normal inspection, full ROM, other (2+ pulses noted in the bilateral upper and lower extremities. There is no palpable cord. n egative Homans sign. Muscular compartments are soft. The pelvis is stable.). Absent: pedal edema, calf tenderness - Back Exam Back exam: Present: normal inspection. Absent: tenderness, CVA tenderness (R), CVA tenderness (L), paraspinal tenderness, vertebral tenderness - Neurological Exam Neurological exam: Present: alert, other (The patient is awake. The patient moves 4 extremities. There is no facial droop.) - Skin Skin exam: Present: warm, dry, intact, normal color. Absent: rash ED Course Vital Signs 12/01/21 12/01/21 12/01/21 19:45 20:01 20:15 Temperature 97.0 F L Pulse Rate 54 L 55 L Respiratory 12 14 13 Rate Blood Pressure 215/94 206/91 Blood Pressure 214/99 [Left] O2 Sat by Pulse 100 99 98 Oximetry 12/01/21 12/01/21 12/01/21 20:31 20:53 21:01 Temperature Pulse Rate 53 L 49 L Respiratory 16 11 L 11 L Rate Blood Pressure 199/89 199/89 203/86 Blood Pressure [Left] O2 Sat by Pulse 99 100 99 Oximetry 12/01/21 12/01/21 12/01/21 21:09 21:15 21:31 Temperature Pulse Rate 51 L 52 L 54 L Respiratory 10 L Rate Blood Pressure 203/86 208/90 198/87 Blood Pressure [Left] O2 Sat by Pulse 99 98 Oximetry 12/01/21 12/01/21 12/01/21 21:45 22:01 22:15 Temperature Pulse Rate 56 L 51 L 53 L Respiratory 11 L 11 L 15 Rate Blood Pressure 198/80 200/84 205/81 Blood Pressure [Left] O2 Sat by Pulse 99 98 99 Oximetry - Reevaluation(s) Reevaluation #1: 12/02/21 00:19 Urinalysis with pyuria and bacteria. Will treat empirically with antibiotics. Patient took medications orally without difficulty. He is resting comfortably in his stretcher at this time. ED Medical Decision Making - Lab Data Result diagrams: 12/01/21 19:51 12/01/21 19:51 Vital Signs 12/01/21 21:09 Pulse Rate 51 L Blood Pressure 203/86 Lab Results 12/01/21 12/01/21 12/01/21 Range/Units 19:51 19:51 19:51 WBC 5.7 (4.5-11.0) K/mm3 RBC 5.14 H (3.65-5.03) M/mm3 Hgb 15.5 H (11.8-15.2) gm/dl Hct 46.0 H (35.5-45.6) % MCV 90 (84-94) fl MCH 30 (28-32) pg MCHC 34 (32-34) % RDW 13.0 L (13.2-15.2) % Plt Count 241 (140-440) K/mm3 Lymph % (Auto) 19.2 (13.4-35.0) % [place] % (Auto) 5.4 (0.0-7.3) % Eos % (Auto) 5.3 H (0.0-4.3) % Baso % (Auto) 1.2 (0.0-1.8) % Lymph # (Auto) 1.1 L (1.2-5.4) K/mm3 [place] # (Auto) 0.3 (0.0-0.8) K/mm3 Eos # (Auto) 0.3 (0.0-0.4) K/mm3 Baso # (Auto) 0.1 (0.0-0.1) K/mm3 Seg Neutrophils % 68.9 (40.0-70.0) % Seg Neutrophils # 3.9 (1.8-7.7) K/mm3 PT 12.7 (12.2-14.9) Sec. INR 0.86 L (0.87-1.13) APTT 27.9 (24.2-36.6) Sec. Sodium 138 (137-145) mmol/L Potassium 3.7 (3.6-5.0) mmol/L Chloride 101.4 (98-107) mmol/L Carbon Dioxide 25 (22-30) mmol/L Anion Gap 15 mmol/L BUN 13 (9-20) mg/dL Creatinine 1.0 (0.8-1.3) mg/dL Estimated GFR > 60 ml/min BUN/Creatinine Ratio 13 % Glucose 178 H (75-100) mg/dL Lactic Acid (0.7-2.0) mmol/L Calcium 9.0 (8.4-10.2) mg/dL Total Bilirubin 0.90 (0.1-1.2) mg/dL AST 61 H (5-40) units/L ALT 6 L (7-56) units/L Alkaline Phosphatase 83 (35-129) units/L Ammonia (25-60) umol/L Troponin T < 0.010 (0.00-0.029) ng/mL Total Protein 8.4 H (6.3-8.2) g/dL Albumin 3.8 L (3.9-5) g/dL Albumin/Globulin Ratio 0.8 % TSH (0.270-4.200) mlU/mL Salicylates (2.8-20.0) mg/dL Acetaminophen (10.0-30.0) ug/mL Plasma/Serum Alcohol (0-0.07) % 12/01/21 12/01/21 12/01/21 Range/Units 19:51 19:51 19:51 WBC (4.5-11.0) K/mm3 RBC (3.65-5.03) M/mm3 Hgb (11.8-15.2) gm/dl Hct (35.5-45.6) % MCV (84-94) fl MCH (28-32) pg MCHC (32-34) % RDW (13.2-15.2) % Plt Count (140-440) K/mm3 Lymph % (Auto) (13.4-35.0) % [place] % (Auto) (0.0-7.3) % Eos % (Auto) (0.0-4.3) % Baso % (Auto) (0.0-1.8) % Lymph # (Auto) (1.2-5.4) K/mm3 [place] # (Auto) (0.0-0.8) K/mm3 Eos # (Auto) (0.0-0.4) K/mm3 Baso # (Auto) (0.0-0.1) K/mm3 Seg Neutrophils % (40.0-70.0) % Seg Neutrophils # (1.8-7.7) K/mm3 PT (12.2-14.9) Sec. INR (0.87-1.13) APTT (24.2-36.6) Sec. Sodium (137-145) mmol/L Potassium (3.6-5.0) mmol/L Chloride (98-107) mmol/L Carbon Dioxide (22-30) mmol/L Anion Gap mmol/L BUN (9-20) mg/dL Creatinine (0.8-1.3) mg/dL Estimated GFR ml/min BUN/Creatinine Ratio % Glucose (75-100) mg/dL Lactic Acid 1.20 (0.7-2.0) mmol/L Calcium (8.4-10.2) mg/dL Total Bilirubin (0.1-1.2) mg/dL AST (5-40) units/L ALT (7-56) units/L Alkaline Phosphatase (35-129) units/L Ammonia < 10.0 L (25-60) umol/L Troponin T (0.00-0.029) ng/mL Total Protein (6.3-8.2) g/dL Albumin (3.9-5) g/dL Albumin/Globulin Ratio % TSH 0.291 (0.270-4.200) mlU/mL Salicylates (2.8-20.0) mg/dL Acetaminophen (10.0-30.0) ug/mL Plasma/Serum Alcohol (0-0.07) % 12/01/21 12/01/21 12/01/21 Range/Units 19:51 19:51 19:51 WBC (4.5-11.0) K/mm3 RBC (3.65-5.03) M/mm3 Hgb (11.8-15.2) gm/dl Hct (35.5-45.6) % MCV (84-94) fl MCH (28-32) pg MCHC (32-34) % RDW (13.2-15.2) % Plt Count (140-440) K/mm3 Lymph % (Auto) (13.4-35.0) % [place] % (Auto) (0.0-7.3) % Eos % (Auto) (0.0-4.3) % Baso % (Auto) (0.0-1.8) % Lymph # (Auto) (1.2-5.4) K/mm3 [place] # (Auto) (0.0-0.8) K/mm3 Eos # (Auto) (0.0-0.4) K/mm3 Baso # (Auto) (0.0-0.1) K/mm3 Seg Neutrophils % (40.0-70.0) % Seg Neutrophils # (1.8-7.7) K/mm3 PT (12.2-14.9) Sec. INR (0.87-1.13) APTT (24.2-36.6) Sec. Sodium (137-145) mmol/L Potassium (3.6-5.0) mmol/L Chloride (98-107) mmol/L Carbon Dioxide (22-30) mmol/L Anion Gap mmol/L BUN (9-20) mg/dL Creatinine (0.8-1.3) mg/dL Estimated GFR ml/min BUN/Creatinine Ratio % Glucose (75-100) mg/dL Lactic Acid (0.7-2.0) mmol/L Calcium (8.4-10.2) mg/dL Total Bilirubin (0.1-1.2) mg/dL AST (5-40) units/L ALT (7-56) units/L Alkaline Phosphatase (35-129) units/L Ammonia (25-60) umol/L Troponin T (0.00-0.029) ng/mL Total Protein (6.3-8.2) g/dL Albumin (3.9-5) g/dL Albumin/Globulin Ratio % TSH (0.270-4.200) mlU/mL Salicylates < 0.3 L (2.8-20.0) mg/dL Acetaminophen 5.0 L (10.0-30.0) ug/mL Plasma/Serum Alcohol < 0.01 (0-0.07) % - EKG Data -: EKG Interpreted by Nd - EKG Data 12/01/21 21:28 The EKG is interpreted at 19: 47 A. fib, rate 56 bpm. Normal axis, QTC 4 3 6 ms, and motion artifact. Abnormal EKG. Not a STEMI - Radiology Data Radiology results: pending, report reviewed, image reviewed CT BRAIN: 12/01/2021 INDICATION / CLINICAL INFORMATION: ams. COMPARISON: CT brain 03/20/2019 FINDINGS: BRAIN/INTRACRANIAL STRUCTURES: Unenhanced CT images of the brain were obtained and compared to the prior exam from 03/20/2019. Overall, there is been no change. Again seen is prominent ventriculomegaly, with particularly prominent dilatation of the trigones of lateral ventricles. Prominent cortical atrophy is also present without change. Chronic white matter hypoattenuation is present throughout the cerebral hemispheric white matter. Chronic lacunar changes are present in the basal ganglia and thalami. There is a small focal area of cortical dystrophic calcification in the left parietal lobe, unchanged. There are no abnormal extra-axial fluid collections. Atherosclerotic vascular calcifications are present in the distal internal carotid arteries and vertebral arteries. EXTRACRANIAL STRUCTURES: Unremarkable. IMPRESSION: No acute abnormality. Extensive chronic and age- related changes. No significant change when compared to 03/20/2019. All CT scans at this location are performed using dose reduction to ALARA by means of automated exposure control. Signer Name: Hernan Zimmerman MD Signed: 12/01/2021 8:05 PM Workstation Name: [id number] CHEST 1 VIEW 12/01/2021 7:50 PM INDICATION / CLINICAL INFORMATION: Altered Mental Status. COMPARISON: 03/20/2019 FINDINGS: SUPPORT DEVICES: None. HEART / MEDIASTINUM: No significant abnormality. LUNGS / PLEURA: No significant pulmonary or pleural abnormality. No pneumothorax. ADDITIONAL FINDINGS: No significant additional findings. IMPRESSION: 1. No acute findings. Signer Name: Pineda Jones MD Signed: 12/01/2021 7:17 PM Workstation Name: [id number] - Medical Decision Making Differential diagnosis, including not limited to: Obstructed Gibbs catheter, pneumonia, urinary tract infection, electrolyte derangement chronic hypertension, and dementia Assessment and plan: 85-year-old gentleman, who is wheelchair-bound, who lives at home with family, presenting to the ER primarily today with a complaint as per family of obstructed Gibbs catheter. Laboratory studies essentially nonactionable, outpatient follow-up for nonspecific liver abnormalities. Noncontrast CT scan of the brain shows no bleed, x-ray the chest is unremarkable, EKG essentially unchanged from prior, urinalysis pending. Contacted patient's daughter, and discussed clinical impression. She is agreeable to take the patient home. Elevated blood pressure reviewed and appreciated. Patient tolerated amlodipine by mouth. Please reference the [employer] clinical policy on asymptomatic hypertension. No abdominal tenderness, rebound, guarding or pulsatility after placement of Fo catie catheter. Critical care attestation.: If time is entered above; I have spent that time in minutes in the direct care of this critically ill patient, excluding procedure time. ED Disposition Clinical Impression: Afib, Elevated blood pressure reading, Gibbs catheter in place, Weakness, Bacteriuria with pyuria Disposition: 01 HOME / SELF CARE / HOMELESS Is pt being admited?: No Does the pt Need Aspirin: No Condition: Good Additional Instructions: Please continue current outpatient medications. Please follow-up with your primary care doctor within the next week. Please follow-up with your outpatient neurologist within the next week. Please have your primary care doctor contact the medical records department to obtain copies of laboratory studies and radiology studies, to follow-up on none mergent incidental abnormal findings. Cultures were sent today, and results will be available in the next week. Please have your primary care doctor contact the medical records department to obtain culture results. Please continue current antihypertensive/blood pressure medications. Long-term complications of hypertension include stroke, heart attack, disability, paralysis and loss of quality of life. Please return to the emergency room right away with new pain, worsened pain, migration of pain, projectile vomiting, change in mental status, confusion, inability tolerate liquid feeds, new, worsened or different symptoms not present on the initial emergency room evaluation Prescriptions: Cefpodoxime Proxetil 100 mg PO Q12HR #14 tab Referrals: DEVORAH VARGAS MD [Staff Physician] - 3-5 Days [facility] [Provider Group] - 3-5 Days
--- NOTE | 2021-12-01 20:22 | XRay Report ---
CHEST 1 VIEW 12/01/2021 7:50 PM INDICATION / CLINICAL INFORMATION: Altered Mental Status. COMPARISON: 03/20/2019 FINDINGS: SUPPORT DEVICES: None. HEART / MEDIASTINUM: No significant abnormality. LUNGS / PLEURA: No significant pulmonary or pleural abnormality. No pneumothorax. ADDITIONAL FINDINGS: No significant additional findings. IMPRESSION: 1. No acute findings. Signer Name: Pineda Jones MD Signed: 12/01/2021 8:17 PM Workstation Name: [id number]
[2021-12-01 20:25] LABS: Hemoglobin 15.5 gm/dl (11.8-15.2); Red Blood Count 5.14 M/mm3 (3.65-5.03)
[2021-12-01 20:26] LABS: Basophils # (Auto) 0.1 K/mm3 (0.0-0.1); Basophils % (Auto) 1.2 % (0.0-1.8); Eosinophils # (Auto) 0.3 K/mm3 (0.0-0.4); Eosinophils % (Auto) 5.3 % (0.0-4.3); Lymphocytes # (Auto) 1.1 K/mm3 (1.2-5.4); Lymphocytes % (Auto) 19.2 % (13.4-35.0); Mean Corpuscular HGB Conc 34 % (32-34); Mean Corpuscular Volume 90 fl (84-94); Monocytes # (Auto) 0.3 K/mm3 (0.0-0.8); Monocytes % (Auto) 5.4 % (0.0-7.3); Platelet Count 241 K/mm3 (140-440)
[2021-12-01 20:35] LABS: INR 0.86 (0.87-1.13)
[2021-12-01 20:41] LABS: Partial Thromboplastin Time 27.9 Sec. (24.2-36.6)
[2021-12-01 20:45] LABS: Alanine Aminotransferase 6 units/L (7-56); Albumin 3.8 g/dL (3.9-5); BUN/Creatinine Ratio 13; Blood Urea Nitrogen 13 mg/dL (9-20); Hemolysis Index 8
[2021-12-01] MEDS ORDERED: amLODIPine 10 MG TAB PO STA (21:03)
--- NOTE | 2021-12-01 21:09 | Cat Scan Report ---
CT BRAIN: 12/01/2021 INDICATION / CLINICAL INFORMATION: ams. COMPARISON: CT brain 03/20/2019 FINDINGS: BRAIN/INTRACRANIAL STRUCTURES: Unenhanced CT images of the brain were obtained and compared to the pr ior exam from 03/20/2019. Overall, there is been no change. Again seen is prominent ventriculomegaly, with particularly prominent dilatation of the trigones of l ateral ventricles. Prominent cortical atrophy is also present without change. Chronic white matter hypoattenuation is present throughout the cerebral hemispheric white matter. Chronic lacunar changes are present in the basal ganglia and thalami. There is a small focal area of cortical dystrophic calcification in the left parietal lobe, unchanged . There are no abnormal extra-axial fluid collections. Atherosclerotic vascular calcifications are present in the distal internal carotid arteries and verte bral arteries. EXTRACRANIAL STRUCTURES: Unremarkable. IMPRESSION: No acute abnormality. Extensive chronic and age-related changes. No significant change when compared to 03/20/2019. All CT scans at this location are performed using dose reduction to ALARA by means of automated expos ure control. Signer Name: Hernan Zimmerman MD Signed: 12/01/2021 9:05 PM Workstation Name: [id number]
[2021-12-01 21:36] LABS: Bacteria,Urine 1+ /HPF (Negative); Bilirubin,Urine NEG (Negative); Blood,Urine MOD (Negative); Color,Urine Straw (Yellow); Mucus,Urine FEW /HPF; Protein,Urine <15 mg/dL mg/dL (Negative); Urobilinogen,Urine < 2.0 mg/dL (<2.0)
[2021-12-01] MEDS ORDERED: cefTRIAXone/NS 1 GM/50 ML 1 GM/50 ML BAG IV ONE (21:53)
[2021-12-02 06:51] VITALS: BP 152/80
--- NOTE | 2021-12-02 11:07 | Electrocardiograph Report ---
[facility] Test Date: 2021-12-01 Test Time: 19:47:42 Pat Name: DAVIDA AGUIRRE Department: Room: Gender: M [employer] Cook: MIHIR : 1935 Requested By: ELISA PORTER Order Number: [id number] Reading MD: Bj Pruitt Measurements Intervals [place] Rate: 56 P: 0 MN: 69 QRS: 60 QRSD: 103 T: -29 QT: 453 QTc: 436 Interpretive Statements Sinus rhythm Compared to ECG 09/20/2021 16:48:20 T wave abnormality, consider inferior ischemia Sinus bradycardia no longer present Prolonged QT interval no longer present Electronically Signed On 12-02-2021 11:06:57 EST by Bj Pruitt
== END 2021-12-02 11:00 | disposition home or self-care (01) ==
LOC: ED 19:35
DX: I48.91 Unspecified atrial fibrillation (principal); R03.0 Elevated blood-pressure reading, without diagnosis of hypertension; R53.1 Weakness; R82.71 Bacteriuria; R82.81 Pyuria; Z79.899 Other long term (current) drug therapy
CPT/HCPCS: 36415; 70450; 71045; 80053; 81001; 82140; 84443; 84484; 85025; 85610; 85730; 87086; 93005; 93010; 96365; 99285; J0696; 80320; 87076; 87186; G0480